=== PATIENT | male | born 1945 | race Caucasian/White ===

== ENCOUNTER 2019-06-22 11:00 | Outpatient (RCR) | payer OTHER, SELFPAY | END 2019-06-22 11:05 | disposition home or self-care (01) | LOC: PT 11:00 | PROVIDERS: Visit Provider Internal Medicine | DX: M54.5 Low back pain (principal) | CPT/HCPCS: 97110; 97163; 97164 ==

== ENCOUNTER 2023-04-25 11:28 | Emergency (ER) | payer OTHER, SELFPAY ==
[2023-04-25 11:45] VITALS: BP 168/89; PULSE 95; RESP 18; TEMP 36.6; O2SAT 95; BMI 26.4
--- NOTE | 2023-04-25 11:49 | ED_ITS ---
Discharge Plan Disposition Patient Disposition: Home, Self-Care Condition: Good Prescriptions Prescriptions: New prednisone 10 mg tablet 10 mg PO BID 5 Days Qty: 10 0RF No Action metformin 500 mg tablet 1,000 mg PO BID glipizide 2.5 mg tablet 2.5 mg PO BID lisinopril 2.5 mg tablet 2.5 mg PO DAILY Referrals Follow up/Referrals: Ottoniel Mercado [Primary Care Provider] - See instructions Activity Restrictions/Add. Instructions Additional Instructions/Restrictions: Continue the antibiotics (amoxicillin) that were prescribed to you yesterday. Start the steroids (prednisone). They will make your blood sugar run higher than normal while you are on them, so watch your blood sugar closely. Follow up with your regular doctor. GO TO THE ER FOR ANY WORSENING SYMPTOMS Clinical Impressions Clinical Impression: Otitis media Instructions Patient Instructions: Middle Ear Infection, Prednisone Discharge ED Provider: Frank Jay [facility] – [place] HPI General Stated complaint: both ears clogged Time Seen by Provider: 04/25/23 11:49 History of Present Illness Provider Complaint: He came in today to have his ears rechecked. He was diagnosed with an ear infection yesterday. He states he is having decreased hearing in his left. He wants to see if irrigating the ear canal would make it feel better. Related Data Home Medications Medication Instructions Recorded Confirmed glipizide 2.5 mg tablet 2.5 mg PO BID 04/24/23 04/25/23 lisinopril 2.5 mg tablet 2.5 mg PO DAILY 04/24/23 04/25/23 metformin 500 mg tablet 1,000 mg PO BID 04/24/23 04/25/23 Previous Rx's Medication Instructions Recorded prednisone 10 mg tablet 10 mg PO BID 5 days #10 tabs 04/25/23 Allergies Allergy/AdvReac Type Severity Reaction Status Date / Time [id number] Reductase AdvReac Weakness Verified 04/25/23 11:56 Inhibitor [facility] Disclaimer: The information contained in this section may have been updated after the patient was seen, as this information can be updated by other users. Medical History (Updated 04/25/23 @ 12:07 by Frank Jay APRN) Hypertension Type 2 diabetes mellitus Surgical History No significant past surgical history Family History Other No significant family history Social History Smoking Status: Never smoker alcohol intake: never current occupational status: retired Travel in the last 8 weeks: None ROS Obtained: Yes All systems reviewed & no additional complaints except as documented Constitutional Constitutional: Denies chills, Reports fever(s) and Reports poor appetite Eyes Eyes: Denies eye discharge ENT Ears, Nose, Mouth, and Throat: Denies ear discharge, Reports otalgia, Denies hearing loss, Denies sinus pain and Reports sore throat Cardiovascular Cardiovascular: Denies chest pain and Denies dyspnea Respiratory Respiratory: Denies chest congestion, Reports cough and Denies dyspnea Gastrointestinal Gastrointestingal: Denies abdominal pain, diarrhea, nausea or vomiting Musculoskeletal Musculoskeletal: Denies arthralgias Integumentary/Breasts Skin/Breast: Denies rash Physical Exam General General appearance: alert and in no apparent distress Head Head exam: atraumatic, normocephalic and normal inspection Eye Eye exam: Present normal appearance; Absent PERRL or EOMI ENT ENT exam: Present mucous membranes moist and normal external ear exam Expanded ENT Exam TM/Canal exam: Bilateral TM: erythema, bulging and effusion Nose exam: Absent sinus tenderness Nasal speculum exam: Bilateral: normal Mouth exam: Present normal external inspection and other; Absent drooling Teeth exam: Present normal inspection Throat exam: Present tonsillar erythema and tonsillomegaly Neck Neck exam: Present normal inspection, full ROM and trachea midline; Absent tenderness, meningismus or lymphadenopathy Chest Chest inspection: Present normal inspection and symmetric chest wall rise; Absent tenderness Respiratory Respiratory exam: Present normal lung sounds bilaterally; Absent respiratory distress, wheezes or stridor Cardiovascular Cardiovascular exam: Present regular rate, normal rhythm and normal heart sounds; Absent tachycardia or irregular rhythm Abdominal Exam Abdominal exam: Present soft and normal bowel sounds; Absent distention, tenderness, guarding, rebound or rigidity Extremities Exam Extremities exam: Present normal inspection and normal capillary refill; Absent tenderness, joint swelling or calf tenderness Back Exam Back exam: Present normal inspection and full ROM; Absent tenderness, CVA tenderness (R) or CVA tenderness (L) Neurological Exam Neurological exam: Present alert, oriented X3, CN II-XII intact, normal gait and reflexes normal; Absent motor sensory deficit Psychiatric Psychiatric exam: Present normal affect and normal mood Skin Skin exam: Present warm, dry, intact and normal color Lymphatic Lymphatic Findings: no adenopathy Medical Decision Making Medical Records Medical records reviewed: No I reviewed the patient's medical records. Michael Inquiry Pt receiving controlled substance: No
[2023-04-25 12:15] VITALS: BP 168/89; PULSE 95; RESP 18; TEMP 36.6; O2SAT 95
== END 2023-04-25 12:15 | disposition home or self-care (01) ==
PROVIDERS: Emergency Provider Nurse Practitioner Family; PCP Internal Medicine
DX: H66.93 Otitis media, unspecified, bilateral (principal); H91.92 Unspecified hearing loss, left ear; I10 Essential (primary) hypertension; E11.9 Type 2 diabetes mellitus without complications; Z79.84 Long term (current) use of oral hypoglycemic drugs
CPT/HCPCS: 99204; 99212; G0463